=== PATIENT | female | born 1945 | race Caucasian/White ===

== ENCOUNTER → 2022-07-24 | Outpatient (CLI) | payer MEDICARE, OTHER ==
[~2022-07-24] MED LIST: ACET500 PO; Actonel150 MG PO; Aspirin EC81 MG PO; B Complex #11 EACH PO; CELE200 PO; CLOP75 PO; CYCL10 PO; FISH1000 PO; IBUP600 PO; LINZESS145 MCG PO; LOSARTAN-HCTZ1 EACH PO; Lyrica225 MG PO; MELO7.5; METF500 PO; OXYC5 PO; PHILLIPS' COLO1 EACH PO; ROSU5 PO; TRESIBA100 UNIT/2 SC; Triamcinolone A15 GM TP; VICODIN 5-3001 EACH PO
== END | disposition home or self-care (01) ==
LOC: LAB SHORT 13:57
DX: L03.012 Cellulitis of left finger (principal); R30.0 Dysuria
CPT/HCPCS: 87070; 87086; 87205

== ENCOUNTER → 2024-10-31 | Outpatient (CLI) | payer MEDICARE, OTHER | LOC: LAB 15:51 → LAB SHORT 15:51 | DX: R82.998 Other abnormal findings in urine (principal) | CPT/HCPCS: 87077; 87086; 87186 ==

== ENCOUNTER → 2024-11-22 | Outpatient (CLI) | payer MEDICARE, OTHER ==
[2024-11-23 09:59] LABS: Stool Occult Bld Immuno 1 Negative (NEGATIVE)
== END ==
LOC: LAB 15:39 → LAB SHORT 15:39
PROVIDERS: Family Medicine
DX: Z12.11 Encounter for screening for malignant neoplasm of colon (principal)
CPT/HCPCS: G0328

== ENCOUNTER 2025-03-13 22:06 | Emergency (ER) | payer MEDICARE, OTHER ==
[~2025-03-13] VITALS: Ht 154.9 cm; Wt 65.8 kg
[2025-03-13] MEDS ORDERED: OxyCODONE 5 mg/Acetamin 325 mg TABLET PO ONE (22:25)
[2025-03-13] MEDS ORDERED: OLME20 PO (22:57)
[2025-03-13] MEDS ORDERED: Crestor40 MG PO (22:57)
[2025-03-13] MEDS ORDERED: AMLO5 PO (22:58)
[2025-03-14] MEDS ORDERED: ONDA4ODT MM (00:04)
[2025-03-14] MEDS ORDERED: Percocet 5-3251 EACH PO (00:04)
[2025-03-14] MEDS ORDERED: RX Prepack 6 Tabs Oxycodone 5mg UD ONE (00:05)
[2025-03-14] MEDS ORDERED: RX Prepack 2 Tabs Ondansetron ODT 4MG UD ONE (00:05)
[2025-03-14] MEDS ORDERED: Ketorolac Tromethamine 30mg Vial IM ONE (00:10)
[2025-03-14 00:30] VITALS: BP 130/64
== END 2025-03-14 00:45 | disposition home or self-care (01) ==
LOC: ER 22:06
DX: S70.11XA Contusion of right thigh, initial encounter (principal); I10 Essential (primary) hypertension; E11.9 Type 2 diabetes mellitus without complications; Z79.4 Long term (current) use of insulin; Z79.84 Long term (current) use of oral hypoglycemic drugs; Z79.02 Long term (current) use of antithrombotics/antiplatelets; Z79.899 Other long term (current) drug therapy; W18.09XA Striking against other object with subsequent fall, initial encounter
CPT/HCPCS: 73502; 96372; 99283-25; A9270; J1885